=== PATIENT | female | born 1965 | race Caucasian/White ===

== ENCOUNTER 2016-04-26 12:54 | Outpatient (RCR) | payer OTHER ==
--- OUTSIDE RECORDS SUMMARY | 2016-02-16 13:59 | XMS REPORT | Continuity of Care Document ---
Author Author [facility] Organization [facility] Address Unknown Phone Unavailable Care Team Providers Care Assistant Principal Name Role Phone ALYSHA LANZA MD PCP Insurance Providers Payer Name Policy Number Subscriber Name Relationship [employer] [id number] Moises Duckworth 16 Self / Same As Patient Advance Directives Directive Response Recorded Date/Time Advance Directives No 05/16/15 6:30am Health Care Power of Solution Advisor No 05/16/15 6:30am Organ Donor Yes 05/16/15 6:30am Problems No problem information available. Medications Current Home Medications Medication Dose Units Route Directions Days/Qty Instructions Start Date Atenolol 50 Mg 1 Each Oral Daily 02/08/10 Potassium Chloride 10 Meq 10 Meq Oral Twice A Day 05/10/15 Tamoxifen Citrate 20 Mg 20 Mg Oral Daily 05/10/15 Multivitamin 1 Each 1 Each Oral Daily 05/10/15 Calcium Carbonate/Vitamin D3 1 Each 1 Each Oral Daily 05/10/15 [Vit E] 400 Unit Oral Daily 05/10/15 Oxycodone Hcl/Acetaminophen 1 Each 1-2 Tab Oral Every 4HRS as needed for Pain 30 05/16/15 Past Home Medications Medication Directions Ordered Status Acetaminophen/Hydrocodone Bitart 1 Tab Tab, 1 - 2 Ea Oral Q4hr Prn 02/08/10 Discontinued Multivitamin 1 Each Tablet, 1 Each Oral Daily 01/07/14 Discontinued Tamoxifen Citrate 20 Mg Tablet, 20 Mg Oral Daily 01/07/14 Discontinued Hydrocodone Bit/Acetaminophen 1 Each Tablet, 1-2 Each Oral Q4 - 6H as needed for Pain 01/13/14 Discontinued Anastrozole 1 Mg Tablet, 1 Mg Oral Daily 02/22/14 Discontinued Social History Social History Problem Response Recorded Date/Time Alcohol Use Occasionally Uses 05/16/2015 6:30am Recreational Drug Use No 05/16/2015 6:30am Recent Foreign Travel SEE [facility] E 08/25/2015 2:15pm Sexually Transmitted Disease No 05/16/2015 6:30am HIV/AIDS No 05/16/2015 6:30am Do you dip or chew tobacco? No 05/16/2015 6:30am Sexually Transmitted Disease No 05/16/2015 6:30am Hx Sexually Transmitted Disorders No 01/13/2014 6:40am Hospital Discharge Instructions No hospital discharge instructions. Plan of Care Prescriptions See Medication Section Functional Status No functional status results. Allergies, Adverse Reactions, Alerts No known allergies. Immunizations No immunization records. Vital Signs No known vital signs results. Results Laboratory Results Test Name Result Units Flags Reference Collection Date/Time Result Date/ Time Comments White Blood Count 5.0 10^3/uL 4.3-11.0 09/22/2015 2:55pm 09/22/2015 4: 20pm Red Blood Count 4.09 10^6/uL L 4.35-5.85 09/22/2015 2:55pm 09/22/2015 4: 20pm Hemoglobin 13.0 G/DL 11.5-16.0 09/22/2015 2:55pm 09/22/2015 4:20pm Hematocrit 37 % 35-52 09/22/2015 2:55pm 09/22/2015 4:20pm Mean Corpuscular Volume 90 FL 80-99 09/22/2015 2:55pm 09/22/2015 4: 20pm Mean Corpuscular Hemoglobin 32 PG 25-34 09/22/2015 2:55pm 09/22/2015 4: 20pm Mean Corpuscular Hemoglobin Concent 35 G/DL 32-36 09/22/2015 2:55pm 12/2015 4:20pm Red Cell Distribution Width 12.4 % 10.0-14.5 09/22/2015 2:55pm 2015 4:20pm Platelet Count 231 10^3/uL 130-400 09/22/2015 2:55pm 09/22/2015 4:20pm Mean Platelet Volume 10.1 FL 7.4-10.4 09/22/2015 2:55pm 09/22/2015 4: 20pm Neutrophils (%) (Auto) 63 % 42-75 09/22/2015 2:55pm 09/22/2015 4:20pm Lymphocytes (%) (Auto) 30 % 12-44 09/22/2015 2:55pm 09/22/2015 4:20pm Monocytes (%) (Auto) 7 % 0-12 09/22/2015 2:55pm 09/22/2015 4:20pm Eosinophils (%) (Auto) 1 % 0-10 09/22/2015 2:55pm 09/22/2015 4:20pm Basophils (%) (Auto) 0 % 0-10 09/22/2015 2:55pm 09/22/2015 4:20pm Neutrophils # (Auto) 3.1 X 10^3 1.8-7.8 09/22/2015 2:55pm 09/22/2015 4: 20pm Lymphocytes # (Auto) 1.5 X 10^3 1.0-4.0 09/22/2015 2:55pm 09/22/2015 4: 20pm Monocytes # (Auto) 0.3 X 10^3 0.0-1.0 09/22/2015 2:55pm 09/22/2015 4: 20pm Eosinophils # (Auto) 0.0 10^3/uL 0.0-0.3 09/22/2015 2:55pm 09/22/2015 4 :20pm Basophils # (Auto) 0.0 10^3/uL 0.0-0.1 09/22/2015 2:55pm 09/22/2015 4: 20pm Sodium Level 138 MMOL/L 135-145 09/22/2015 2:55pm 09/22/2015 4:49pm Potassium Level 4.2 MMOL/L 3.6-5.0 09/22/2015 2:55pm 09/22/2015 4:49pm Chloride Level 106 MMOL/L 98-107 09/22/2015 2:55pm 09/22/2015 4:49pm Carbon Dioxide Level 26 MMOL/L 21-32 09/22/2015 2:55pm 09/22/2015 4: 49pm Anion Gap 6 MMOL/L 5-14 09/22/2015 2:55pm 09/22/2015 4:49pm Blood Urea Nitrogen 13 MG/DL 7-18 09/22/2015 2:55pm 09/22/2015 4:49pm Creatinine 0.91 MG/DL 0.60-1.30 09/22/2015 2:55pm 09/22/2015 4:49pm BUN/Creatinine Ratio 14 09/22/2015 2:55pm 09/22/2015 4:49pm Estimat Glomerular Filtration Rate > 60 09/22/2015 2:55pm 2015 4:49pm GFR INTERPRETIVE DATA UNITS FOR ESTIMATED GFR (eGFR): mL/min/1.73 M2 REFERENCE RANGE FOR ESTIMATED GFR (eGFR) eGFR NORMAL eGFR >60 MODERATELY DECREASED eGFR 30-59 SEVERLY DECREASED eGFR 15-29 KIDNEY FAILURE <15 (OR DIALYSIS) Glucose Level 97 MG/DL 70-105 09/22/2015 2:55pm 09/22/2015 4:49pm Calcium Level 8.8 MG/DL 8.5-10.1 09/22/2015 2:55pm 09/22/2015 4:49pm Total Bilirubin 0.4 MG/DL 0.1-1.0 09/22/2015 2:55pm 09/22/2015 4:49pm Alkaline Phosphatase 55 U/L 40-136 09/22/2015 2:55pm 09/22/2015 4:49pm Aspartate Amino Transf (AST/SGOT) 21 U/L 5-34 09/22/2015 2:55pm 2015 4:49pm Alanine Aminotransferase (ALT/SGPT) 18 U/L 0-55 09/22/2015 2:55pm 09/21 4:49pm Total Protein 6.0 G/DL L 6.4-8.2 09/22/2015 2:55pm 09/22/2015 4:49pm Albumin 3.9 G/DL 3.2-4.5 09/22/2015 2:55pm 09/22/2015 4:49pm Procedures No known history of procedures. Encounters Encounter Location Arrival/Admit Date Discharge/Depart Date Attending Provider Discharged Recurring [facility] 11/17/15 10:21am 11:59pm SEBASTIAN BRADFORD MD
[2016-03-22 13:41] LABS: BASOPHILS % (AUTO) 0 % (0-10); EOSINOPHILS # (AUTO) 0.1 10^3/uL (0.0-0.3); EOSINOPHILS % (AUTO) 1 % (0-10); LYMPHOCYTES % (AUTO) 23 % (12-44); MEAN CORPUSCULAR HEMOGLOBIN 32 PG (25-34); MEAN CORPUSCULAR HGB CONC 35 G/DL (32-36); MEAN CORPUSCULAR VOLUME 91 FL (80-99); MEAN PLATELET VOLUME 10.3 FL (7.4-10.4); MONOCYTES # (AUTO) 0.3 X 10^3 (0.0-1.0); MONOCYTES % (AUTO) 8 % (0-12); NEUTROPHILS # (AUTO) 2.8 X 10^3 (1.8-7.8); NEUTROPHILS % (AUTO) 68 % (42-75); PLATELET COUNT 217 10^3/uL (130-400); RED BLOOD COUNT 4.21 10^6/uL (4.35-5.85); RED CELL DISTRIBUTION WIDTH 12.4 % (10.0-14.5); WHITE BLOOD COUNT 4.2 10^3/uL (4.3-11.0)
[2016-03-22 14:05] LABS: ALANINE AMINOTRANSFERASE 20 U/L (0-55); ALBUMIN 3.8 G/DL (3.2-4.5); ANION GAP 10 MMOL/L (5-14); ASPARTATE AMINO TRANSFERASE 22 U/L (5-34); BILIRUBIN,TOTAL 0.6 MG/DL (0.1-1.0); BLOOD UREA NITROGEN 14 MG/DL (7-18); BUN/CREATININE RATIO 17; CALCIUM 8.8 MG/DL (8.5-10.1); CARBON DIOXIDE 22 MMOL/L (21-32); CHLORIDE 108 MMOL/L (98-107); CREATININE SERUM 0.84 MG/DL (0.60-1.30); GFR ESTIMATED > 60; GLUCOSE 106 MG/DL (70-105); POTASSIUM 4.2 MMOL/L (3.6-5.0); SODIUM 140 MMOL/L (135-145); TOTAL PROTEIN 6.3 G/DL (6.4-8.2)
[~2016-04-26 12:54] MED LIST: ANAS1TAB7 PO; ATEN50TA PO; CALC-140 PO; HYDR-3454 PO; HYDR-3583 PO; MULT-963 PO; MULT-974 PO; OXYC-202 PO; POTA10TA36 PO; TAMO20TA2 PO; VIT E PO
== END 2016-05-16 | disposition home or self-care (01) ==
LOC: PAR 12:54
PROVIDERS: ATTEND Internal Medicine Hematology & Oncology
DX: C50.912 Malignant neoplasm of unspecified site of left female breast (principal); C77.3 Secondary and unspecified malignant neoplasm of axilla and upper limb lymph nodes; Z17.0 Estrogen receptor positive status [ER+]; Z45.2 Encounter for adjustment and management of vascular access device
CPT/HCPCS: 36415; 80053; 85025; 86300; 96523; 99213

== ENCOUNTER 2016-07-26 10:39 | Outpatient (RCR) | payer OTHER ==
--- OUTSIDE RECORDS SUMMARY | 2016-05-24 11:36 | XMS REPORT | Continuity of Care Document ---
Author Author [facility] Organization [facility] Address Unknown Phone Unavailable Care Team Providers Care Sustainability Specialist Name Role Phone ALYSHA LANZA MD PCP Insurance Providers Payer Name Policy Number Subscriber Name Relationship [employer] [id number] Moises Duckworth 16 Self / Same As Patient Advance Directives Directive Response Recorded Date/Time Advance Directives No 05/16/15 6:30am Health Care Power of Hedis Analyst No 05/16/15 6:30am Organ Donor Yes 05/16/15 [...] Discharge/Depart Date Attending Provider Discharged Recurring [facility] 11/17/15 10:21am 11:59pm SEBASTIAN BRADFORD MD
[2016-08-22] MEDS ORDERED: ALTEPLASE 2 MG (CATHFLO) CANCER CENTER IV ONE (10:00)
== END 2016-08-22 | disposition home or self-care (01) ==
LOC: PAR 10:39
PROVIDERS: ATTEND Internal Medicine Hematology & Oncology
DX: C50.912 Malignant neoplasm of unspecified site of left female breast (principal); C77.3 Secondary and unspecified malignant neoplasm of axilla and upper limb lymph nodes; Z17.0 Estrogen receptor positive status [ER+]; Z45.2 Encounter for adjustment and management of vascular access device
CPT/HCPCS: 96523

== ENCOUNTER 2016-09-27 11:06 | Outpatient (RCR) | payer OTHER ==
[2016-09-20 16:19] LABS: BASOPHILS % (AUTO) 0 % (0-10); EOSINOPHILS # (AUTO) 0.1 10^3/uL (0.0-0.3); EOSINOPHILS % (AUTO) 2 % (0-10); LYMPHOCYTES # (AUTO) 1.2 X 10^3 (1.0-4.0); LYMPHOCYTES % (AUTO) 25 % (12-44); MEAN CORPUSCULAR HEMOGLOBIN 31 PG (25-34); MEAN CORPUSCULAR HGB CONC 34 G/DL (32-36); MEAN CORPUSCULAR VOLUME 92 FL (80-99); MEAN PLATELET VOLUME 10.8 FL (7.4-10.4); MONOCYTES # (AUTO) 0.4 X 10^3 (0.0-1.0); MONOCYTES % (AUTO) 8 % (0-12); NEUTROPHILS # (AUTO) 3.2 X 10^3 (1.8-7.8); NEUTROPHILS % (AUTO) 65 % (42-75); PLATELET COUNT 203 10^3/uL (130-400); RED BLOOD COUNT 4.36 10^6/uL (4.35-5.85); RED CELL DISTRIBUTION WIDTH 12.1 % (10.0-14.5)
[2016-09-20 16:46] LABS: ALANINE AMINOTRANSFERASE 20 U/L (0-55); ALBUMIN 3.9 G/DL (3.2-4.5); ANION GAP 9 MMOL/L (5-14); ASPARTATE AMINO TRANSFERASE 21 U/L (5-34); BILIRUBIN,TOTAL 0.7 MG/DL (0.1-1.0); BLOOD UREA NITROGEN 14 MG/DL (7-18); BUN/CREATININE RATIO 17; CARBON DIOXIDE 23 MMOL/L (21-32); CHLORIDE 109 MMOL/L (98-107); CREATININE SERUM 0.83 MG/DL (0.60-1.30); GFR ESTIMATED > 60; GLUCOSE 111 MG/DL (70-105); POTASSIUM 4.4 MMOL/L (3.6-5.0); SODIUM 141 MMOL/L (135-145); TOTAL PROTEIN 6.8 G/DL (6.4-8.2)
[~2016-09-27 11:06] MED LIST changes: +ALTEPLASE 2 MG (CATHFLO) CANCER CENTER IV ONE
== END 2016-11-21 | disposition home or self-care (01) ==
LOC: PAR 11:06
PROVIDERS: ATTEND Internal Medicine Hematology & Oncology
DX: C50.912 Malignant neoplasm of unspecified site of left female breast (principal); C77.3 Secondary and unspecified malignant neoplasm of axilla and upper limb lymph nodes; Z17.0 Estrogen receptor positive status [ER+]; Z45.2 Encounter for adjustment and management of vascular access device
CPT/HCPCS: 36591; 36593; 80053; 85025; 86300; 99213

== ENCOUNTER 2016-12-27 10:52 | Outpatient (RCR) | payer OTHER ==
[~2016-12-27 10:52] MED LIST changes: -ALTEPLASE 2 MG (CATHFLO) CANCER CENTER IV ONE
== END 2017-01-12 | disposition home or self-care (01) ==
LOC: ONC 10:52
PROVIDERS: ATTEND Internal Medicine Hematology & Oncology
DX: C50.912 Malignant neoplasm of unspecified site of left female breast (principal); C77.3 Secondary and unspecified malignant neoplasm of axilla and upper limb lymph nodes; Z17.0 Estrogen receptor positive status [ER+]; Z45.2 Encounter for adjustment and management of vascular access device
CPT/HCPCS: 96523

== ENCOUNTER → 2017-01-31 | Outpatient (CLI) | payer OTHER ==
--- NOTE | 2017-02-01 09:55 | Diagnostic Imaging Report ---
EXAMINATION: Bilateral screening mammogram 2D views with tomosynthesis. The current study was also evaluated with a Computer Aided Detection (CAD) system. INDICATION: Screening. PERSONAL HISTORY: No current complaints stated on the questionnaire. COMPARISON: 01/31/2016. FINDINGS: The breasts are composed of heterogeneously dense parenchyma which may decrease mammographic sensitivity. There are post lumpectomy and radiation changes seen in the left breast, similar to prior multiple exams. Allowing for technique and positional differences, no suspicious change is seen. IMPRESSION: No significant change. ACR BI-RADS Category 2: Benign findings. Result letter will be mailed to the patient. Note: At least 10% of breast cancer is not imaged by mammography. Dictated by: Dictated on workstation # [id number]
== END ==
LOC: RAD 10:17
PROVIDERS: ATTEND Internal Medicine Hematology & Oncology
DX: D05.12 Intraductal carcinoma in situ of left breast (principal)
CPT/HCPCS: 77067

== ENCOUNTER 2017-03-28 10:49 | Outpatient (RCR) | payer OTHER ==
[2017-03-28 11:16] LABS: BASOPHILS % (AUTO) 1 % (0-10); EOSINOPHILS # (AUTO) 0.1 10^3/uL (0.0-0.3); EOSINOPHILS % (AUTO) 1 % (0-10); HEMATOCRIT 40 % (35-52); HEMOGLOBIN 14.2 G/DL (11.5-16.0); LYMPHOCYTES # (AUTO) 1.3 X 10^3 (1.0-4.0); LYMPHOCYTES % (AUTO) 22 % (12-44); MEAN CORPUSCULAR HEMOGLOBIN 32 PG (25-34); MEAN CORPUSCULAR HGB CONC 35 G/DL (32-36); MEAN CORPUSCULAR VOLUME 92 FL (80-99); MEAN PLATELET VOLUME 9.4 FL (7.4-10.4); MONOCYTES # (AUTO) 0.4 X 10^3 (0.0-1.0); MONOCYTES % (AUTO) 6 % (0-12); NEUTROPHILS # (AUTO) 4.1 X 10^3 (1.8-7.8); NEUTROPHILS % (AUTO) 71 % (42-75); PLATELET COUNT 206 10^3/uL (130-400); RED BLOOD COUNT 4.39 10^6/uL (4.35-5.85); WHITE BLOOD COUNT 5.8 10^3/uL (4.3-11.0)
[2017-03-28 11:40] LABS: ALANINE AMINOTRANSFERASE 18 U/L (0-55); ALBUMIN 3.7 GM/DL (3.2-4.5); ALKALINE PHOSPHATASE 51 U/L (40-136); BILIRUBIN,TOTAL 0.6 MG/DL (0.1-1.0); BUN/CREATININE RATIO 17; CALCIUM 8.9 MG/DL (8.5-10.1); CARBON DIOXIDE 24 MMOL/L (21-32); CHLORIDE 106 MMOL/L (98-107); CREATININE SERUM 0.76 MG/DL (0.60-1.30); GFR ESTIMATED > 60; GLUCOSE 113 MG/DL (70-105); POTASSIUM 4.2 MMOL/L (3.6-5.0); SODIUM 138 MMOL/L (135-145); TOTAL PROTEIN 6.8 GM/DL (6.4-8.2)
== END 2017-05-01 | disposition home or self-care (01) ==
LOC: ONC 10:49
PROVIDERS: ATTEND Internal Medicine Hematology & Oncology
DX: C50.912 Malignant neoplasm of unspecified site of left female breast (principal); C77.3 Secondary and unspecified malignant neoplasm of axilla and upper limb lymph nodes; Z17.0 Estrogen receptor positive status [ER+]; Z45.2 Encounter for adjustment and management of vascular access device
CPT/HCPCS: 36591; 80053; 85025; 96523

== ENCOUNTER → 2017-03-28 | Outpatient (CLI) | payer OTHER ==
--- NOTE | 2017-03-28 13:05 | Diagnostic Imaging Report ---
Three views of the sacrum and coccyx. INDICATION: Tailbone pain. FINDINGS: There is satisfactory alignment of the SI joints. No fracture or dislocation is identified. No radiopaque foreign body. IMPRESSION: Unremarkable exam. Dictated by: Dictated on workstation # [id number]
--- NOTE | 2017-03-28 13:06 | Diagnostic Imaging Report ---
Three views of the lumbar spine. INDICATION: Back pain. FINDINGS: The alignment of the lumbar spine is satisfactory. The vertebral body heights are preserved. Disc heights are also preserved. There are anterior osteophytes noted in the upper to mid lumbar spine. No posterior osteophytes. The SI joints appear unremarkable. IMPRESSION: Mild degenerative changes. Dictated by: Dictated on workstation # [id number]
== END ==
LOC: RAD 11:42
PROVIDERS: ATTEND Internal Medicine Hematology & Oncology
DX: M47.816 Spondylosis without myelopathy or radiculopathy, lumbar region (principal); M53.3 Sacrococcygeal disorders, not elsewhere classified; C50.919 Malignant neoplasm of unspecified site of unspecified female breast
CPT/HCPCS: 72100; 72220

== ENCOUNTER → 2018-02-18 | Outpatient (CLI) | payer MEDICAID, OTHER ==
[~2018-02-18] MED LIST changes: -OXYC-202 PO; +OXYC1TAB12 PO
--- NOTE | 2018-02-18 19:02 | Diagnostic Imaging Report ---
INDICATION: Routine screening. Comparison is made with prior mammograms from 01/31/2017 and 01/31/2016. 2-D and 3-D bilateral screening mammography was performed with computer-aided detection (CAD) system. FINDINGS: Both breasts are heterogeneously dense, limiting the sensitivity of mammography. Post therapeutic changes in the left breast from lumpectomy and radiation are again noted and appear stable. There are some calcifications in the left breast which appear stable. No new mass or malignant-appearing microcalcifications are seen. The axillae are unremarkable. IMPRESSION: No mammographic features suspicious for malignancy are identified. ACR BI-RADS Category 2: Benign findings. Result letter will be mailed to the patient. Note: At least 10% of breast cancer is not imaged by mammography. Dictated by: Dictated on workstation # [id number]
== END ==
LOC: RAD 10:31
PROVIDERS: ATTEND Physician Assistant
DX: Z12.31 Encounter for screening mammogram for malignant neoplasm of breast (principal)
CPT/HCPCS: 77067

== ENCOUNTER → 2021-12-25 | Outpatient (CLI) | payer MEDICAID ==
[~2021-12-25] MED LIST changes: +POTA-177 PO; -POTA10TA36 PO
--- NOTE | 2021-12-25 14:20 | Diagnostic Imaging Report ---
INDICATION: Routine screening. COMPARISON: 02/18/2018 and 01/31/2017. TECHNIQUE: 2D and 3D bilateral screening mammography was performed with CAD. FINDINGS: Both breasts are heterogeneously dense, limiting the sensitivity of mammography. Post-therapeutic changes in the left breast are again noted and appear stable. No mass or malignant-appearing microcalcifications are seen. The axillae are unremarkable. IMPRESSION: No mammographic features suspicious for malignancy are identified. ACR BI-RADS Category 2: Benign findings. Result letter will be mailed to the patient. Note: At least 10% of breast cancer is not imaged by mammography. Dictated by: Dictated on workstation # [id number]
== END ==
LOC: RAD 09:54
PROVIDERS: ATTEND Physician Assistant
DX: Z12.31 Encounter for screening mammogram for malignant neoplasm of breast (principal); I10 Essential (primary) hypertension
CPT/HCPCS: 77063; 77067

== ENCOUNTER → 2023-01-03 | Outpatient (CLI) | payer MEDICAID ==
--- NOTE | 2023-01-03 13:52 | Diagnostic Imaging Report ---
Indication: Left breast carcinoma, status post lumpectomy. Comparison is made with prior mammogram from 12/25/2021 and 02/18/2018. 2-D and 3-D bilateral diagnostic mammography was performed with CAD. The current study was also evaluated with a Computer Aided Detection (CAD) system. Both breasts are heterogeneously dense, limiting the sensitivity of mammography. Post lobectomy changes in the left breast are again noted and appear stable. No residual recurrent mass is identified. There are benign calcifications at the lumpectomy site. Right breast is stable. Axillae are unremarkable. IMPRESSION: BI-RADS Category 2 No mammographic features suspicious for malignancy are identified. ACR BI-RADS Category 2: Benign findings. Result letter will be mailed to the patient. Note: At least 10% of breast cancer is not imaged by mammography. Dictated by: Dictated on workstation # [id number]
== END ==
LOC: RAD 09:15
PROVIDERS: ATTEND Physician Assistant
DX: C50.912 Malignant neoplasm of unspecified site of left female breast (principal); Z98.890 Other specified postprocedural states
CPT/HCPCS: 77066; G0279; 77062